=== PATIENT | female | born 1975 | race Caucasian/White ===

== ENCOUNTER 2017-12-25 22:26 | Emergency (ER) | payer OTHER ==
[2017-12-25] MEDS: DIPHENHYDRAMINE 25 MG CAP PO (23:19)
[2017-12-25] MEDS: METOCLOPRAMIDE 10 MG TAB PO (23:19)
[2017-12-25] MEDS: KETOROLAC 15 MG INJ IM (23:19)
== END 2017-12-26 00:54 | disposition home or self-care (01) ==
LOC: FTE 12-26 00:54
DX: J06.9 Acute upper respiratory infection, unspecified (principal)
CPT/HCPCS: 81025; 96372; 99284-25